=== PATIENT | female | born 2000 | race Hispanic/Latino ===

== ENCOUNTER 2023-10-16 17:02 | Emergency (ER) | payer OTHER, SELFPAY ==
[2023-10-16 17:06] VITALS: BP 101/57
[2023-10-16 17:25] LABS: % Basophils 0.4 % (0-2); % Eosinophils 0.5 % (0-6); % Immature Granulocytes 0.4 % (0-0.5); % Lymphocytes 18.2 % (20.5-51.1); % Monocytes 5.6 % (1.7-9.3); % Neutrophils 74.9 % (42.2-75.2); Absolute Basophils 0.1 10^3/uL (0-0.2); Absolute Eosinophils 0.1 10^3/uL (0-0.7); Absolute Immature Granulocytes 0.1 10^3/uL (0-0.05); Absolute Lymphocytes 2.3 10^3/uL (1.2-3.4); Absolute Monocytes 0.7 10^3/uL (0.1-0.6); Absolute Neutrophils 9.7 10^3/uL (1.4-6.5); Hematocrit 36.7 % (37.0-47.0); Mean Corp Hgb Conc. 32.7 g/dL (33.0-37.0); Mean Corpuscular Hgb 28.6 pg (27.0-31.0); Mean Corpuscular Volume 87.6 fL (81.0-99.0); Mean Platelet Volume 9.4 fL (7.4-10.4); Nucleated Red Blood Cells % 0 %; Platelet Count 294 10^3/uL (130-400); Red Blood Cell Count 4.19 10^6/uL (4.20-5.40); Red Cell Dist. Width 12.1 % (11.5-14.5); White Blood Cell Count 12.9 10^3/uL (4.8-10.8)
[2023-10-16 17:40] LABS: ALT (SGPT) 26 U/L (0-35); AST (SGOT) 33 U/L (14-36); Albumin 4.7 g/dl (3.5-5.0); Alkaline Phosphatase 82 U/L (38-126); Blood Urea Nitrogen 12 mg/dl (7-17); Calcium 9.3 mg/dl (8.4-10.2); Carbon Dioxide 23 mmol/L (22-30); Chloride 104 mmol/L (98-107); Glucose 89 mg/dl (70-99); Lipase 145 U/L (23-300); Potassium 3.6 mmol/L (3.5-5.1); Sodium 134 mmol/L (135-145); Total Bilirubin 0.5 mg/dl (0.2-1.3); Total Protein 7.5 g/dl (6.3-8.2); eGFR > 60.00
[2023-10-16 18:13] LABS: HCG, Serum Qualitative Screen Negative
--- NOTE | 2023-10-16 19:11 | ED.GENMED ---
History of Present Illness
General
Chief Complaint: Abdominal Pain
Source: patient
Exam Limitations: none
Time Seen by Provider: 10/16/23 18:49
Travel History
Have you had any contact with someone who has COVID-19?: No
Do you have any symptoms of coronavirus? Fever > 100 degrees, chills, cough, shortness of breath, sore throat, loss of taste or smell, muscle aches, or headache?: No
History of Present Illness
History of Present Illness:
This is a 23 year old female that comes in with c/o abd pain. States that this is the second time that this happened. States that 2 nights ago she got this lower abd pain. State that she felt like it was in her Uterus. State that she went to sleep
and it was gone. Then today she was in the BR and voided and she got this intense pain that moves up her abd. States that she passed out twice from the pain. States that she was dizzy with the pain. Denies any fevrer, chills, chest pain, SOB,
nausea, vomiting, diarrhea, headache, urinary burning.
Past History
Past History
ED Past Medical History: None; Negative Asthma, HTN, Hypercholesterolemia or NIDDM
ED Past Surgical History: None
Social History
Tobacco: Non-smoker
Drug: None
Personal: Single
Living: with family
Review of Systems
Review of Systems
All Other Systems: ROS reviewed and negative except as documented in HPI and ROS
Constitutional: Reports no symptoms; Denies fever or chills
EENT: Reports no symptoms
Respiratory: Reports no symptoms; Denies cough or trouble breathing
Cardiac: Reports no symptoms; Denies chest pain
ABD/GI: Reports abdominal pain; Denies nausea, vomiting or diarrhea
: Reports no symptoms; Denies dysuria, frequency or urgency
Musculoskeletal: Reports no symptoms
Skin: Reports no symptoms
Neurological: Reports dizzy (with pain); Denies headache
Psychiatric: Reports no symptoms
Phy Exam
General Physical Exam
General Presentation: mild distress (With head down pain increased )
General age: appears stated age
General Skin: warm and dry
General Habitus: normal
General Mental: alert
General Hydration: appears well hydrated
ENT Exam
ENT Exam: TM's normal, pharynx normal and neck supple
Eye Exam
Eye Exam: EOMI
Cardiovascular Exam
Cardiovascular Exam: regular rate/rhythm, no edema, no murmur and normal peripheral pulses
Pulmonary Exam
Pulmonary Exam: lungs clear, no respiratory distress, no rales, chest non tender, no crackles, no rhonchi, no wheezing and no cough
Gastrointestinal Exam
Gastrointestinal Exam: normal bowel sounds, soft, no organomegaly, no pulsatile mass, non distended and tender (Lower abd tenderness R>L)
Musculoskeletal Exam
Musculoskeletal Exam: full ROM and no edema
Skin Exam
Skin Exam: normal color, warm/dry, no rash and no petechia
Psychiatric Exam
Psychiatric Exam: normal mood/affect
Course
Orders/Labs/Results
Orders:
Orders
10/16/23 17:10
IV Insert/Care/Rem.- Treatment PRN
10/16/23 17:16
Complete Blood Count/With Diff Urgent
Comprehensive Metabolic Panel Urgent
HCG, Serum Qualitative Screen Urgent
Comment: ADD ON
Lipase Urgent
10/16/23 17:52
Add On- LAB Urgent
Tests Added?: hcg qualitative serum
10/16/23 19:10
CT Abd/pel W Iv And Oral Contr Urgent
Comment:
Reason For Exam: Lower abd pain, right sided
Iohexol [Omnipaque] See Protocol PO NOW STA
Ketorolac [Toradol] 30 mg IV NOW STA
US Pelvis W Transvag Combined Urgent
Reason For Exam: Lower abd pain
10/16/23 19:17
0.9% Sodium Chloride 1000 ml [Nss] 1,000 ml IV BOLUS
10/16/23 22:21
Morphine Sulfate 2 mg .ROUTE .STK-MED ONE
10/16/23 22:24
Morphine Sulfate 2 mg IV NOW STA
10/16/23 23:07
Urinalysis Reflex To Culture Urgent
Date Specimen was Collected: 10/16/23
Time Specimen was Collected: 23:06
Abnormal Lab Results
10/16/23 10/16/23
17:16 23:07
WBC 12.9 H 10^3/uL
(4.8-10.8)
RBC 4.19 L 10^6/uL
(4.20-5.40)
Hct 36.7 L %
(37.0-47.0)
MCHC 32.7 L g/dL
(33.0-37.0)
Abs Immat Gran (auto) 0.1 H 10^3/uL
(0-0.05)
Absolute Neuts (auto) 9.7 H 10^3/uL
(1.4-6.5)
Absolute Monos (auto) 0.7 H 10^3/uL
(0.1-0.6)
Lymphocytes % 18.2 L %
(20.5-51.1)
Sodium 134 L mmol/L
(135-145)
Urine Ketones 3+ A
(Negative)
10/16/23 17:16
10/16/23 17:16
Leukocytosis, HCG negative
Vital Signs
Initial and Last Documented VS:
Initial Vital Signs
Temp Pulse Resp BP Pulse Ox
98 F 66 17 101/57 100
10/16/23 17:06 10/16/23 17:06 10/16/23 17:06 10/16/23 17:06 10/16/23 17:06
Last Documented Vital Signs
Temp Pulse Resp BP Pulse Ox
99.4 F 70 17 114/59 98
10/16/23 22:44 10/16/23 22:44 10/16/23 17:06 10/16/23 22:44 10/16/23 22:44
MDM/Problems Addressed
Differential Diagnosis Includes:
ovarian cyst, Appendicitis,
MDM/Problems Addressed:
This is a 23 year old female that comes in with c/o abd pain. States that this is the second time and today was worse. State that she had this pain 2 days ago and she went to sleep and it was gone.
Will check labs, Pelvic Ultrasound and CT scan. IV fluids and pain medication
CT cont- suggestive of a partially ruptured hemorrhagic cyst. The appendix appears normal. NO evidence for bowel obstruction or free intraperitoneal air.
Back into see patient and reviewed CT scan. Explained that she can alternate with Tylenol 1000mg every 6 hours and Ibuprofen 600mg every 6 hours with food. Follow up with the [facility]. Patient can also use a heating pad for comfort. Return with any
concerns.
Chronic conditions affecting care:
NA
Acute Exacerbation and/or Progression of Chronic Illness:
NA
*Radiology
Radiology exam reviewed: radiology read reviewed (US-Normal appearance of the uterus and endometrium. Normal appearance of the right ovary. Complex cyst arisig within the left ovary, with appearance higly suggestive of a hemorrhagic cyst. There is a
small to moderate amount of complex fluid within the pelvic cul-de-sac, which would be suggestive of), all reviewed NAD by ED Provider (CT cont-hemorrhagic fluid. Findings suggest the possibility of partial rupture of left ovarian hemorrhagic cyst.
Consideration for follow-up pelvic ultrasound in 2-3 months, depending on clinical symptoms. Normal color and spectral Doppler imaging of both ovaries. ) and other (CT=There is a small to moderate amount of free fluid in all 4 quadrants, and this
fluid has greater than simple cystic density, suggestive of hemorrhagic fluid. Left ovarian mass which corresponds to a complex cystic mass seen on earlier Pelvic US. Findings on CT and US would be most suggestive of)
*Pulse Oximetry
Patient hypoxic: no
*EKG
Interpreted by ED Provider?: NA
Rate: EKG- N/A
*Pantomimist Interpretation
Rate: Pantomimist- N/A
*Critical Care Note
Total Time (30-74mins, 75-104mins- exclusive of procedures): Not Applicable
ED Attending Note
-
Portions of this chart may have been created with voice recognition software.� Occasional wrong word or��sound alike� substitutions may have occurred due to the inherent limitations of voice recognition software.
Discharge Plan
Departure
Patient Disposition: Home (Routine Discharge)
Date of Disposition: 10/16/23
Time of Disposition: 23:22
Patient with high blood pressure during this ER visit?: No
Condition: Good
Covid-19: Not Applicable
Discharge Problem:
Ruptured cyst of ovary
Instructions: Ovarian Cyst (DC)
Referrals:
UNKNOWN - PT DOES,NOT KNOW [Family Provider] -
Activity Restrictions/Additional Instructions:
As discussed, your blood work shows that your WBC are slightly elevated. This can go up with stress. Your US and CT scan show that you have a ruptured ovarian cyst. This was a hemorrhagic cyst. This will just take time for the fluid to be absorbed
back into the body. The discomfort will continue to decrease each day. You may use Ibuprofen 600mg every 6 hours with food for pain and alternate with Tylenol extra strength for pain. Follow up with our [facility] for further evaluation. IF YOU HAVE
ANY OTHER CONERNS PLEASE RETURN TO THE EMERGENCY ROOM .
Interventions
Interventions:
*Risk Screen - Suicide Last Done: 10/16/23 17:06
*General Assessment Last Done: 10/16/23 17:06
*Neglect/Abuse Screening Last Done: 10/16/23 17:06
ED- Fall Risk Assessment Last Done: 10/16/23 19:37
*ED COVID-19 Vaccine History Last Done: 10/16/23 17:06
FT-Coyndt-Gpkadejxbq Assessment Last Done: 10/16/23 19:37
Discharge Date and Time
Print Language: FAROESE
[2023-10-16 19:23] VITALS: BMI 23.4
[2023-10-16] MEDS: TORADOL 30 MG IV (19:32)
[2023-10-16] MEDS: OMNIPAQUE 50 ML PO (19:33)
[2023-10-16] MEDS: NSS 1000 IV (19:34)
[2023-10-16] MEDS: MORPHINE SULFATE 2 MG IV (22:24)
[2023-10-16 22:44] VITALS: BP 114/59
[2023-10-16 23:14] LABS: Urine Albumin Negative (Neg - Trace); Urine Bilirubin Negative (Negative); Urine Character Clear (Clear); Urine Color Straw; Urine Glucose Negative (Negative); Urine Ketone 3+ (Negative); Urine Leukocyte Negative (Negative); Urine Nitrite Negative (Negative); Urine Occult Blood Negative (Negative); Urine Urobilinogen Negative (Neg - 1+)
== END 2023-10-16 23:36 | disposition home or self-care (01) ==
LOC: EMR 17:02
PROVIDERS: Clinical Nurse Specialist Family Health; Emergency Medicine; EMERGENCY PHYSICIAN Emergency Medicine
DX: N83.202 Unspecified ovarian cyst, left side (principal)
CPT/HCPCS: 99285; 96374; 96375; 96361; 74177; 76830; 76856; 80053; 81003; 83690; 84703; 85025; Q9967

== ENCOUNTER → 2024-06-01 11:41 | Outpatient (REF) | payer OTHER, SELFPAY ==
[2024-06-03 14:08] LABS: Quantiferon Mitogen minus NIL 9.98 IU/mL; Quantiferon NIL 0.02 IU/mL; Quantiferon Plus TB2 minus NIL 0.01 IU/mL (<=0.34); Quantiferon TB Gold Plus Negative (Negative)
== END ==
LOC: OHS 11:41
PROVIDERS: ATTENDING PHYSICIAN Nurse Practitioner Family
DX: Z23 Encounter for immunization (principal)
CPT/HCPCS: 36415; 86480